=== PATIENT | female | born 1995 | race American Indian/Alaskan Native ===

== ENCOUNTER 2020-03-02 14:11 | Emergency (ER) | payer SELFPAY ==
[2020-03-02 14:23] VITALS: BP 104/59
== END 2020-03-02 16:45 | disposition left against medical advice (07) ==
LOC: ED 14:11
DX: T21.09XA Burn of unspecified degree of other site of trunk, initial encounter (principal); Z53.21 Procedure and treatment not carried out due to patient leaving prior to being seen by health care provider; X11.8XXA Contact with other hot tap-water, initial encounter; Y93.89 Activity, other specified; Y92.89 Other specified places as the place of occurrence of the external cause; Y99.8 Other external cause status

== ENCOUNTER 2021-12-06 02:16 | Emergency (ER) | payer SELFPAY ==
[2021-12-06 02:30] VITALS: BP 121/61
[2021-12-06] MEDS ORDERED: CLINDAMYCIN 150 MG/ML VIAL 6 ML IM STA (03:35)
[2021-12-06] MEDS ORDERED: HYDROcodone/ACETAMINOPHEN 5-325 MG TAB PO STA (03:39)
--- NOTE | 2021-12-06 04:24 | Emergency Department Report ---
ED ENT HPI - General Chief complaint: Dental/Oral Stated complaint: SEVERE RT SIDE FACIAL/MOUTH SWELLING Time Seen by Provider: 12/06/21 03:34 Source: patient Mode of arrival: Ambulatory Limitations: No Limitations - History of Present Illness MD complaint: tooth pain (And right facial swelling.) -: Gradual, days(s) (3) Location: tooth # Severity: moderate Quality: dull Consistency: constant Improves with: none Worsens with: none Context- Dental: history of dental caries, poor dental care Associated Symptoms: toothache, pain with swallowing - Related Data Previous Rx's Medication Instructions Recorded Last Taken Type Penicillin Vk [Veetids TAB] 500 mg PO QID #28 tablet 02/22/14 Unknown Rx oxyCODONE /ACETAMINOPHEN [Percocet 2 tab PO Q6HR PRN #30 tablet 02/22/14 Unknown Rx 5/325] Clindamycin [Clindamycin CAP] 450 mg PO TID #90 capsule 09/14/14 Unknown Rx traMADoL [Ultram 50 MG tab] 50 mg PO Q4HR PRN #20 tablet 09/14/14 Unknown Rx Chlorhexidine Mouthwash [Peridex] 15 ml MM BID #1 bottle 12/06/21 Unknown Rx Clindamycin [Clindamycin CAP] 150 mg PO Q8HR #30 capsule 12/06/21 Unknown Rx Lidocaine Viscous 2% 5 ml MM Q3H PRN #120 udc 12/06/21 Unknown Rx Allergies Allergy/AdvReac Type Severity Reaction Status Date / Time codeine Allergy Hives Verified 02/22/14 12:21 ED Dental HPI - General Chief complaint: Dental/Oral Stated complaint: SEVERE RT SIDE FACIAL/MOUTH SWELLING Time Seen by Provider: 12/06/21 03:34 Source: patient Mode of arrival: Ambulatory Limitations: No Limitations - Related Data Previous Rx's Medication Instructions Recorded Last Taken Type Penicillin Vk [Veetids TAB] 500 mg PO QID #28 tablet 02/22/14 Unknown Rx oxyCODONE /ACETAMINOPHEN [Percocet 2 tab PO Q6HR PRN #30 tablet 02/22/14 Unknown Rx 5/325] Clindamycin [Clindamycin CAP] 450 mg PO TID #90 capsule 09/14/14 Unknown Rx traMADoL [Ultram 50 MG tab] 50 mg PO Q4HR PRN #20 tablet 09/14/14 Unknown Rx Chlorhexidine Mouthwash [Peridex] 15 ml MM BID #1 bottle 12/06/21 Unknown Rx Clindamycin [Clindamycin CAP] 150 mg PO Q8HR #30 capsule 12/06/21 Unknown Rx Lidocaine Viscous 2% 5 ml MM Q3H PRN #120 udc 12/06/21 Unknown Rx Allergies Allergy/AdvReac Type Severity Reaction Status Date / Time codeine Allergy Hives Verified 02/22/14 12:21 ED Review of Systems ROS: Stated complaint: SEVERE RT SIDE FACIAL/MOUTH SWELLING Other details as noted in HPI Comment: All other systems reviewed and negative ED Past Medical Hx - Surgical History Additional Surgical History: R knee - Social History Smoking Status: Current Some Day Smoker Substance Use Type: None - Medications Home Medications: Home Medications Medication Instructions Recorded Confirmed Last Taken Type Penicillin Vk [Veetids TAB] 500 mg PO QID #28 tablet 02/22/14 Unknown Rx oxyCODONE /ACETAMINOPHEN [Percocet 2 tab PO Q6HR PRN #30 tablet 02/22/14 Unknown Rx 5/325] Clindamycin [Clindamycin CAP] 450 mg PO TID #90 capsule 09/14/14 Unknown Rx traMADoL [Ultram 50 MG tab] 50 mg PO Q4HR PRN #20 tablet 09/14/14 Unknown Rx Chlorhexidine Mouthwash [Peridex] 15 ml MM BID #1 bottle 12/06/21 Unknown Rx Clindamycin [Clindamycin CAP] 150 mg PO Q8HR #30 capsule 12/06/21 Unknown Rx Lidocaine Viscous 2% 5 ml MM Q3H PRN #120 udc 12/06/21 Unknown Rx ED Physical Exam - General Limitations: No Limitations General appearance: alert, in no apparent distress - Head Head exam: Present: atraumatic, normocephalic - Eye Eye exam: Present: normal appearance, PERRL, EOMI Pupils: Present: normal accommodation - ENT ENT exam: Present: normal exam, normal orophraynx, mucous membranes moist, other (Diffuse dental cariesPain and swelling to molars on the right side as well. Airways patent tongue uvula midline no drooling. Right mandible region. He has tenderness with palpation) - Neck Neck exam: Present: normal inspection - Respiratory Respiratory exam: Present: normal lung sounds bilaterally. Absent: respiratory distress - Cardiovascular Cardiovascular Exam: Present: regular rate, normal rhythm. Absent: systolic murmur, diastolic murmur, rubs, gallop - GI/Abdominal GI/Abdominal exam: Present: soft, normal bowel sounds - Extremities Exam Extremities exam: Present: normal inspection - Back Exam Back exam: Present: normal inspection - Neurological Exam Neurological exam: Present: alert, oriented X3 - Psychiatric Psychiatric exam: Present: normal affect, normal mood - Skin Skin exam: Present: warm, dry, intact, normal color. Absent: rash ED Course Vital Signs 12/06/21 02:23 Temperature 99.1 F Pulse Rate 83 Respiratory 18 Rate Blood Pressure 121/61 O2 Sat by Pulse 97 Oximetry Critical care attestation.: If time is entered above; I have spent that time in minutes in the direct care of this critically ill patient, excluding procedure time. ED Disposition Clinical Impression: Dental abscess Disposition: 01 HOME / SELF CARE / HOMELESS Is pt being admited?: No Does the pt Need Aspirin: No Condition: Stable Instructions: Dental Abscess, Preventive Dental Care, Adult Prescriptions: Clindamycin [Clindamycin CAP] 150 mg PO Q8HR #30 capsule Lidocaine Viscous 2% 5 ml MM Q3H PRN #120 udc PRN Reason: Pain, Moderate (4-6) Chlorhexidine Mouthwash [Peridex] 15 ml MM BID #1 bottle Referrals: [facility] [Outside] - 3-5 Days
== END 2021-12-06 05:10 | disposition home or self-care (01) ==
LOC: ED 02:16
DX: K04.7 Periapical abscess without sinus (principal); F17.200 Nicotine dependence, unspecified, uncomplicated; Z79.899 Other long term (current) drug therapy
CPT/HCPCS: 96372; 99282